=== PATIENT | male | born 1950 | race African-American/Black ===

== ENCOUNTER 2016-12-22 16:49 | Emergency (ER) | payer BC ==
[~2016-12-22] VITALS: Ht 188 cm; Wt 95.5 kg
[2016-12-22 16:55] VITALS: Ht 188 cm; Wt 95.5 kg
[2016-12-22 17:25] LABS: BASOPHILS % 0.5 % (0.0-2.0); EOSINOPHILS # 0.1 10^3/ul (0.0-0.5); EOSINOPHILS % 1.2 % (0.0-7.0); HEMATOCRIT 44.7 % (42.0-52.0); HEMOGLOBIN 14.8 g/dl (14.0-18.0); MEAN CORPUSCULAR HEMOGLOBIN 33.3 pg (29.0-33.0); MEAN CORPUSCULAR HGB CONC 33.1 g/dl (32.0-37.0); MEAN CORPUSCULAR VOLUME 100.4 fl (82.0-101.0); MEAN PLATELET VOLUME 10.6 fl (7.4-10.4); MONOCYTE # 0.4 10^3/ul (0.3-0.9); MONOCYTES % 7.8 % (0.0-11.0); NEUTROPHILS % 36.3 % (39.0-77.0); PLATELET COUNT 188 10^3/UL (140-415); RED BLOOD COUNT 4.45 10^6/ul (4.70-6.10); WHITE BLOOD COUNT 5.6 10^3/ul (4.8-10.8)
[2016-12-22 17:38] LABS: ANION GAP 17 (8-16); BLOOD UREA NITROGEN 9 mg/dl (7-20); CARBON DIOXIDE 25 mmol/L (21-31); CHLORIDE 106 mmol/L (97-110); CREATININE 1.54 mg/dl (0.61-1.24); GLUCOSE 125 mg/dl (70-220); POTASSIUM 3.7 mmol/L (3.5-5.1); SODIUM 144 mmol/L (135-144)
[2016-12-22 17:54] LABS: TROPONIN-I < 0.012 ng/ml (0.00-0.12)
--- NOTE | 2016-12-22 18:37 | ERD ---
ER Documentation Chief Complaint Date/Time DATE: 12/22/16 TIME: 18:35 Chief Complaint BROUGHT IN VIA EMS DUE TO NEAR SYNCOPE WITH WEAKNESS HPI Patient is a 66-year-old male with hepatitis C who presents with syncope. The patient was brought in by ambulance. His son had said that he passed out 3 times within the last 1 hour. His sugar was 106 and his EKG was normal by paramedics. He admits to drinking alcohol and smoking weed which he does not usually do. He believes this is the reason he passed out. He denies fevers. Denies pain. He does not want to stay in the hospital. He said that his primary doctor is Dr. Yolanda Stevenson. ROS All systems reviewed and are negative except as per history of present illness. Medications Home Meds No Active Prescriptions or Reported Meds Allergies Allergies: Coded Allergies: No Known Allergy (Unverified , 12/22/16) PMhx/Soc Hx Cardiac Disorders: Yes (HTN) Hx Miscellaneous Medical Probl: Yes (HEPATITIS C) Hx Alcohol Use: No Hx Substance Use: No Hx Tobacco Use: No Smoking Status: Never smoker FmHx Family History: No diabetes Physical Exam Vitals Vital Signs Date Time Temp Pulse Resp B/P Pulse Ox O2 Delivery O2 Flow Rate FiO2 12/22/16 16:55 98.2 66 18 96/68 98 Physical Exam Const: No acute distress Head: Atraumatic Eyes: Normal Conjunctiva ENT: Normal External Ears, Nose and Mouth. Neck: Full range of motion..~ No meningismus. Resp: Clear to auscultation bilaterally Cardio: Regular rate and rhythm, no murmurs Abd: Soft, non tender, non distended. Normal bowel sounds Skin: No petechiae or rashes Back: No midline or flank tenderness Ext: No cyanosis, or edema Neur: Awake and alert Psych: Normal Mood and Affect Result Diagram: 12/22/16 1710 12/22/16 1710 Results 24 hrs Laboratory Tests Test 12/22/16 17:10 12/22/16 17:13 White Blood Count 5.610^3/ul Red Blood Count 4.4510^6/ul Hemoglobin 14.8g/dl Hematocrit 44.7% Mean Corpuscular Volume 100.4fl Mean Corpuscular Hemoglobin 33.3pg Mean Corpuscular Hemoglobin Concent 33.1g/dl Red Cell Distribution Width 12.0% Platelet Count 57286^3/UL Mean Platelet Volume 10.6fl Neutrophils % 36.3% Lymphocytes % 54.0% Monocytes % 7.8% Eosinophils % 1.2% Basophils % 0.5% Nucleated Red Blood Cells % 0.0/100WBC Neutrophils # 2.010^3/ul Lymphocytes # 3.010^3/ul Monocytes # 0.410^3/ul Eosinophils # 0.110^3/ul Basophils # 0.010^3/ul Nucleated Red Blood Cells # 0.010^3/ul Sodium Level 144mmol/L Potassium Level 3.7mmol/L Chloride Level 106mmol/L Carbon Dioxide Level 25mmol/L Anion Gap 17 Blood Urea Nitrogen 9mg/dl Creatinine 1.54mg/dl Glucose Level 125mg/dl Calcium Level 10.0mg/dl Troponin I < 0.012ng/ml Bedside Glucose 115mg/dL Procedures/MDM EKG read by me: Rate/Rhythm: Regular rate and rhythm at a normal rate Intervals: Normal Impression: No evidence of ischemia or arrhythmia Smoking Cessation Therapy: Pt. was lectured for greater than 3 minutes on the health risks of continued smoking and the benefits of cessation. Patient is a 66-year-old male who presents with acute syncope. The patient admits to drinking alcohol and smoking marijuana which is not his usual. I want to do laboratory studies and normal saline bolus but the patient is refusing normal saline bolus at this time. He says "I want to rehydrate by myself by drinking water and juice". His laboratory studies are basically normal. I want to admit him to the hospital and did recommend admission but he would prefer to go home at this time. I believe a trial of outpatient treatment is reasonable for the patient will need close follow-up with his primary doctor within 24-48 hours. He can return for any worsening symptoms. He denied headache or chest pain. Departure Diagnosis: Primary Impression: Syncope Syncope type: unspecified Qualified Code: R55 - Syncope, unspecified syncope type Additional Impression: Acute weakness Condition: Fair Patient Instructions: Syncope, Unk Cause Additional Instructions: Call your primary care doctor TOMORROW for an appointment during the next 1-2 days.See the doctor sooner or return here if your condition worsens before your appointment time. KONG GONZALEZ MD Dec 22, 2016 18:37
== END 2016-12-22 19:50 | disposition home or self-care (01) ==
LOC: E/R 16:49
DX: R55 Syncope and collapse (principal); R53.1 Weakness; I10 Essential (primary) hypertension
CPT/HCPCS: 36415; 80048; 82962; 84484; 85025; 93005; Z7502